=== PATIENT | female | born 1955 | race Caucasian/White ===

== ENCOUNTER 2019-05-08 08:57 | Day surgery (SDC) | payer OTHER ==
[~2019-05-08] VITALS: Ht 160 cm; Wt 97.5 kg
[2019-05-08] MEDS ORDERED: LIDOCAINE 2% 100 MG/5 ML UJET TP ONE (11:22)
[2019-05-08] MEDS ORDERED: fentaNYL 0.05 MG/ML VIAL ONE (11:22)
[2019-05-08] MEDS ORDERED: fentaNYL 0.05 MG/ML VIAL IVP ONE (11:29)
[2019-05-08] MEDS ORDERED: EPINEPHrine PFS 0.1 MG/ML SYR IVP ONE (12:43)
== END 2019-05-08 12:40 | disposition home or self-care (01) ==
LOC: MOR 08:57 → MTU 08:59 → MOR 12:40
PROVIDERS: ATTEND Internal Medicine Gastroenterology
DX: Z12.11 Encounter for screening for malignant neoplasm of colon (principal); D12.5 Benign neoplasm of sigmoid colon; K57.30 Diverticulosis of large intestine without perforation or abscess without bleeding; K64.8 Other hemorrhoids; I10 Essential (primary) hypertension; E78.00 Pure hypercholesterolemia, unspecified; E11.9 Type 2 diabetes mellitus without complications; Z79.84 Long term (current) use of oral hypoglycemic drugs; Z79.899 Other long term (current) drug therapy; E66.01 Morbid (severe) obesity due to excess calories; Z68.41 Body mass index [BMI] 40.0-44.9, adult; Z98.890 Other specified postprocedural states
CPT/HCPCS: 45381; 45385; 88305; J0171; J3010

== ENCOUNTER 2020-03-11 08:18 | Day surgery (SDC) | payer OTHER, SELFPAY ==
[~2020-03-11] VITALS: Ht 157.5 cm; Wt 104.3 kg
[2020-03-11] MEDS ORDERED: MIDAZOLAM 2 MG/2 ML VIAL ONE (10:20)
[2020-03-11] MEDS ORDERED: fentaNYL citrate 0.05 MG/ML VIAL ONE (10:21)
[2020-03-11] MEDS ORDERED: LIDOCAINE 2% 100 MG/5 ML UJET TP ONE (10:21)
[2020-03-11] MEDS ORDERED: fentaNYL citrate 0.05 MG/ML VIAL IVP ONE (11:35)
== END 2020-03-11 11:45 | disposition home or self-care (01) ==
LOC: MDS 08:18 → MFCC 08:18 → MDS 11:45
PROVIDERS: ATTEND Internal Medicine Gastroenterology
DX: Z12.11 Encounter for screening for malignant neoplasm of colon (principal); D12.4 Benign neoplasm of descending colon; K57.30 Diverticulosis of large intestine without perforation or abscess without bleeding; Z86.010 Personal history of colon polyps; I10 Essential (primary) hypertension; E78.5 Hyperlipidemia, unspecified; E03.9 Hypothyroidism, unspecified; Z90.49 Acquired absence of other specified parts of digestive tract; Z11.59 Encounter for screening for other viral diseases
CPT/HCPCS: 45385; J3010; U0003; J2250